=== PATIENT | male | born 1980 | race Caucasian/White ===

== ENCOUNTER → 2021-05-21 11:16 | Outpatient (POV) | payer OTHER, SELFPAY | PROVIDERS: Visit Provider Dermatology | DX: Z00.00 Encounter for general adult medical examination without abnormal findings (principal) ==

== ENCOUNTER → 2021-09-10 09:58 | Outpatient (POV) | payer OTHER, SELFPAY | PROVIDERS: Visit Provider Dermatology | DX: Z00.00 Encounter for general adult medical examination without abnormal findings (principal) ==

== ENCOUNTER 2023-12-26 07:53 | Emergency (ER) | payer OTHER, SELFPAY ==
[2023-12-26 07:54] VITALS: BP 139/87; PULSE 97; RESP 22; TEMP 36.6; O2SAT 98; BMI 22.4
--- NOTE | 2023-12-26 07:57 | PC.NURSE ---
Dr. Reddy at bedside
[2023-12-26 07:59] VITALS: BP 139/87; PULSE 96; O2SAT 97
--- NOTE | 2023-12-26 08:00 | CT_ITS ---
PROCEDURE INFORMATION: Exam: CT Thoracic Spine Without Contrast Exam date and time: 12/26/2023 9:01 AM Age: 43 years old Clinical indication: Injury or trauma; Additional info: Fall, injury TECHNIQUE: Imaging protocol: Computed tomography of the thoracic spine without contrast. Radiation optimization: All CT scans at this facility use at least one of these dose optimization techniques: automated exposure control; mA and/or kV adjustment per patient size (includes targeted exams where dose is matched to clinical indication); or iterative reconstruction. COMPARISON: No relevant prior studies available. FINDINGS: Bones/joints: Thoracic curvature and alignment is unremarkable. No evidence of acute compression fracture, spondylolysis or spondylolisthesis. Disc heights are fairly well-maintained. No significant spinal stenosis. Soft tissues: Unremarkable. IMPRESSION: No acute abnormalities.
--- NOTE | 2023-12-26 08:00 | CT_ITS ---
PROCEDURE INFORMATION: Exam: CT Abdomen And Pelvis With Contrast Exam date and time: 12/26/2023 9:07 AM Age: 43 years old Clinical indication: Injury or trauma; Additional info: Fall, injury TECHNIQUE: Imaging protocol: Computed tomography of the abdomen and pelvis with contrast. Radiation optimization: All CT scans at this facility use at least one of these dose optimization techniques: automated exposure control; mA and/or kV adjustment per patient size (includes targeted exams where dose is matched to clinical indication); or iterative reconstruction. Contrast material: ISOVUE; Contrast volume: 75 ml; Contrast route: IV; COMPARISON: CT CHEST W CON 12/26/2023 9:07 AM FINDINGS: Lungs: Lung bases are clear. Liver: Liver is unremarkable. No mass or enlargement detected. Gallbladder and biliary ducts: Normal. No calcified stones. No ductal dilation. Pancreas: Unremarkable. Main pancreatic duct is not significantly dilated. Spleen: There are scattered calcified granulomas within the spleen, longstanding, otherwise spleen is unremarkable. Adrenal glands: Normal. No mass. Kidneys and ureters: Kidneys are unremarkable. No calculi or hydronephrosis detected. Stomach and bowel: Unremarkable. No obstruction. No mucosal thickening. Appendix: No evidence of appendicitis. Intraperitoneal space: Unremarkable. No free air. No significant fluid collection. Vasculature: Unremarkable. No abdominal aortic aneurysm. Lymph nodes: Unremarkable. No enlarged lymph nodes. Urinary bladder: Unremarkable as visualized. Reproductive: Prostate gland is mildly enlarged. Bones/joints: Acute nondisplaced fractures left transverse process of L1 and L2 vertebrae. Soft tissues: Unremarkable. IMPRESSION: 1. Acute nondisplaced fractures involving the left transverse processes of L1 and L2 vertebrae. 2. No other evidence of abdominopelvic injury.
--- NOTE | 2023-12-26 08:00 | CT_ITS ---
PROCEDURE INFORMATION: Exam: CT Lumbar Spine Without Contrast Exam date and time: 12/26/2023 9:04 AM Age: 43 years old Clinical indication: Injury or trauma; Additional info: Fall, injury TECHNIQUE: Imaging protocol: Computed tomography of the lumbar spine without contrast. Radiation optimization: All CT scans at this facility use at least one of these dose optimization techniques: automated exposure control; mA and/or kV adjustment per patient size (includes targeted exams where dose is matched to clinical indication); or iterative reconstruction. COMPARISON: CT THORACIC SPINE WO CON 12/26/2023 9:01 AM FINDINGS: Bones/joints: Lumbar curvature and alignment is unremarkable. There are no compression fractures. There is an acute nondisplaced vertically oriented fracture through the left transverse process of L2 vertebrae and subtle nondisplaced fracture involving the left transverse process of L1 vertebra. Remainder of the osseous structures are intact. Soft tissues: Unremarkable. IMPRESSION: Acute nondisplaced fractures involving the left transverse process of L1 and L2 vertebrae.
--- NOTE | 2023-12-26 08:00 | CT_ITS ---
PROCEDURE INFORMATION: Exam: CT Chest With Contrast; Diagnostic Exam date and time: 12/26/2023 9:07 AM Age: 43 years old Clinical indication: Injury or trauma; Additional info: Fall, injury TECHNIQUE: Imaging protocol: Diagnostic computed tomography of the chest with contrast. Radiation optimization: All CT scans at this facility use at least one of these dose optimization techniques: automated exposure control; mA and/or kV adjustment per patient size (includes targeted exams where dose is matched to clinical indication); or iterative reconstruction. Contrast material: ISOVUE; Contrast volume: 75 ml; Contrast route: IV; COMPARISON: CT CHEST W CON 12/26/2023 9:07 AM FINDINGS: Lungs: 2.5 cm benign pleural lipoma present posteriorly right mid lung zone. Pleural surfaces are otherwise unremarkable. No pleural effusion or pneumothorax. Pleural spaces: See Lungs finding. Heart: Heart is not significantly enlarged. No significant coronary artery calcifications. No significant pericardial effusion. Mediastinal space: Anterior mediastinal fat planes are preserved. No evidence of mediastinal hematoma. Scattered granulomas calcifications within the mediastinum, longstanding. Lymph nodes: No significant mediastinal lymphadenopathy. Vasculature: Unremarkable. No aortic aneurysm. Bones/joints: Unremarkable. No acute fracture. Soft tissues: Unremarkable. IMPRESSION: 1. No evidence of intrathoracic injury. 2. Small benign-appearing pleural lipoma right mid lung zone, likely incidental.
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
[2023-12-26] MEDS: ONDANSETRON 4MG/2ML VIAL 4 MG IV (08:10)
[2023-12-26] MEDS: MORPHINE 4MG/ML SYRINGE 4 MG IV (08:10)
[2023-12-26] MEDS: LACTATED RINGERS 1000ML 1,000 ML 999 ML IV (08:10)
[2023-12-26 08:12] LABS: Microscopic, Urine URINE MICROSCOPIC (MICROSCOPIC)
[2023-12-26 08:14] VITALS: BP 142/84; O2SAT 98
[2023-12-26 08:16] LABS: Appearance,Urine CLEAR (Clear); Bilirubin,Urine Negative (Negative); Blood, Urine Negative (Negative); Color,Urine YELLOW (Yellow); Glucose,Urine (UA) Negative (Negative); Ketones,Urine Negative (Negative); Leukocyte Esterase,Urine TRACE (Negative); Nitrate,Urine Negative (Negative); Protein,Urine Negative (Negative); Urobilinogen,Urine 0.2 EU/dl (0.2)
[2023-12-26 08:16] LABS: Basophils # 0.1 K/mm3 (0-0.2); Basophils % 0.7 % (0.1-2.0); Eosinophils # 0.6 K/mm3 (0.0-0.4); Eosinophils % 6.3 % (0.1-12.0); Hematocrit 45.6 % (42.0-52.0); Hemoglobin 15.4 g/dL (14.1-18.0); Lymphocytes # 2.5 K/mm3 (0.7-4.5); Lymphocytes % 24.6 % (10-50); Mean Corpuscular HGB Conc 33.8 g/dL (31.8-35.4); Mean Corpuscular Volume 94.5 fl (80-94); Mean Platelet Volume 7.6 fl (7.4-10.4); Monocytes # 0.5 K/mm3 (0.1-1.0); Neutrophils # 6.5 K/mm3 (1.8-7.8); Neutrophils % 63.4 % (37.0-80.0); Platelet Count 282 K/mm3 (142-424); Red Blood Count 4.82 M/mm3 (4.60-6.20); Red Cell Distribution Width 13.3 % (11.5-17.5); White Blood Count 10.2 K/mm3 (4.8-10.8)
[2023-12-26 08:25] LABS: Alanine Aminotransferase 22 U/L (12-78); Albumin Level 4.4 g/dl (3.5-5.0); Albumin/Globulin Ratio 1.6 (1.1-1.8); Alkaline Phosphatase 57 U/L (38-126); Anion Gap 12.1 mEq/L (5-15); Aspartate Amino Transferase 25 U/L (17-59); Bilirubin,Total 0.4 mg/dl (0.2-1.3); Blood Urea Nitrogen 11 mg/dl (9-20); Calcium 8.9 mg/dl (8.4-10.2); Carbon Dioxide 23 mmol/L (22.0-30.0); Chloride 110 mmol/L (98-107); Creatinine Clearance Estimated 126 mL/min (50-200); Estimated Glomerular Filt Rate 106 ml/min (>60); GFR (African American) 128 ML/MIN (>60); Globulin 2.8 g/dL (1.3-3.2); Glucose 94 mg/dl (74-100); Potassium 4.1 mmoL/L (3.5-5.1); Sodium 141 mmol/L (136-145); Total Protein,Serum 7.2 g/dl (6.3-8.2)
--- NOTE | 2023-12-26 08:51 | PC.NURSE ---
Pt's chemistry panel is back and gfr/creatinine are wnl. Radiology notified.
--- NOTE | 2023-12-26 08:51 | PC.NURSE ---
pt to ct via wheelchair
--- NOTE | 2023-12-26 09:17 | PC.NURSE ---
pt back from RAD
--- NOTE | 2023-12-26 09:21 | PC.NURSE ---
pt states I feel worse than when I came in. It's getting hard ot breathe . Dr. Reddy notifeid of pt's concerns and statement.
[2023-12-26] MEDS: IOPAMIDOL-370 (76%);100ML BOTTLE 75 ML IV (09:22)
[2023-12-26] MEDS: SODIUM CHLORIDE 0.9% 10ML SYR (RAD ONLY) 10 ML IV (09:22)
--- NOTE | 2023-12-26 09:32 | PC.NURSE ---
PT AMBULATING AROUND ED, NO NEEDS AT THIS TIME
[2023-12-26] MEDS: CYCLOBENZAPRINE 10MG TABLET 10 MG PO (09:33)
[2023-12-26] MEDS: KETOROLAC 30MG/ML VIAL 15 MG IV (09:34)
[2023-12-26 09:36] LABS: Bacteria,Urine Trace /lpf; Squamous Epithelial Cell,Urine Occasional #/hpf (0-5); WBC,Urine Occasional #/hpf (0-3)
--- NOTE | 2023-12-26 09:46 | PC.NURSE ---
dr manzano at bedside to update pt
[2023-12-26 10:03] VITALS: BP 142/84; PULSE 88; RESP 18; TEMP 36.6; O2SAT 98
== END 2023-12-26 10:04 | disposition home or self-care (01) ==
PROVIDERS: Emergency Provider Student in an Organized Health Care Education/Training Program
DX: S32.018A Other fracture of first lumbar vertebra, initial encounter for closed fracture (principal); S32.028A Other fracture of second lumbar vertebra, initial encounter for closed fracture; R10.32 Left lower quadrant pain; M54.59 Other low back pain; M54.6 Pain in thoracic spine; V86.59XA Driver of other special all-terrain or other off-road motor vehicle injured in nontraffic accident, initial encounter
CPT/HCPCS: 71260; 72128; 72131; 74177; 80053; 81001; 85025; 96361; 96374; 96375; 99285; J1885; J2270; J2405; J7120; Q9967